=== PATIENT | male | born 1975 | race Caucasian/White ===

== ENCOUNTER → 2017-07-09 | Outpatient (CLI) | payer BC ==
[~2017-07-09] MED LIST: AMOX-429 PO; INSU100C14 SQ; LACT10SO46 PO; LEVIMIR SQ; LOSA25TA21 PO
== END | disposition home or self-care (01) ==
LOC: RAH 14:05
PROVIDERS: ATTEND Internal Medicine Gastroenterology
DX: N63.20 Unspecified lump in the left breast, unspecified quadrant (principal); N63.10 Unspecified lump in the right breast, unspecified quadrant; R92.2 Inconclusive mammogram
CPT/HCPCS: 76641; 77066

== ENCOUNTER 2017-07-25 18:19 | Inpatient (IN) | payer BC ==
[~2017-07-25] VITALS: Ht 175.3 cm; Wt 81.6 kg
[~2017-07-25 18:19] MED LIST changes: +AMIODARONE HCL 900MG/18ML IV ONE; +CALCIUM CHLORIDE 100 MG/ML 10 ML SYG IVP ONE; +DOPAMINE HCL 400 MG/D5%-WATER 250 ML IV ONE; +EPINEPHRINE 0.1 MG/ML 10 ML SYG IVP ONE; +LIDOCAINE 2G/250ML 250 ML IV ONE; +MAGNESIUM SULFATE 1 GM/2 ML VIAL IM ONE; +SODIUM BICARB 8.4% 50ML SYRINGE IVP ONE
[2017-07-25] MEDS ORDERED: EPINEPHRINE 1 MG/ML 30ML VIAL IJ ONE (18:41)
[2017-07-25 18:46] LABS: BASOPHILS % (AUTO) 0.6 % (0.0-5.0); EOSINOPHILS % (AUTO) 0.4 % (0.0-8.0); HEMATOCRIT 35.6 % (42-54); LYMPHOCYTES % (AUTO) 40.1 % (21.0-51.0); MEAN CORPUSCULAR HEMOGLOBIN 36.6 pg (27.0-33.0); MEAN CORPUSCULAR HGB CONC 31.7 g/dL (32.0-36.0); MEAN CORPUSCULAR VOLUME 115.5 fL (79-99); MONOCYTES % (AUTO) 6.8 % (3.0-13.0); NEUTROPHILS % (AUTO) 52.1 % (40.0-77.0); NUCLEATED RED BLOOD CELLS 0.5 % (0.0-0.19); PLATELET COUNT (AUTO) 105 K/uL (130-400); RED BLOOD CELL COUNT(AUTO) 3.09 MIL/uL (4.50-6.20); RED CELL DISTRIBUTION WIDTH 15.6 % (11.0-15.5); WHITE BLOOD COUNT (AUTO) 8.9 K/uL (4.8-10.8)
[2017-07-25] MEDS ORDERED: SODIUM BICARB 50MEQ 50ML VIAL ONE ×2 (18:46→22:06)
[2017-07-25 18:50] LABS: INR 1.63 (0.85-1.15); PARTIAL THROMBOPLASTIN TIME 46.2 SEC (26.3-35.5)
[2017-07-25 19:03] LABS: ALBUMIN 2.6 g/dL (3.5-5.0); BILIRUBIN,TOTAL 3.6 mg/dL (0.2-1.0); CREATINE KINASE MB 1.6 ng/mL (0.5-3.6); CREATININE 2.7 mg/dL (0.5-1.5); TOTAL PROTEIN, SERUM 6.8 g/dL (6.0-8.3)
[2017-07-25 19:05] LABS: POTASSIUM 7.7 mmol/L (3.5-5.1)
[2017-07-25] MEDS ORDERED: SODIUM CHLORIDE 0.9% IV ONE (19:19)
[2017-07-25] MEDS ORDERED: SODIUM CHLORIDE 0.9% 200 ML IV ONE (19:20)
[2017-07-25] MEDS ORDERED: NOREPINEPHRINE BITARTRATE 1 MG/1 ML ML IV ONE (19:20)
[2017-07-25] MEDS ORDERED: INSULIN HUMULIN R 100 UNIT/ML 3ML ONE ×2 (19:22→19:27)
[2017-07-25 19:23] LABS: ABG BASE EXCESS -22.4 mmol/L (-2.0-3.0); ABG HCO3 9.5 mmol/L (21.0-28.0); ABG OXYGEN SATURATION 98.1 % (95.0-99.0); ABG PCO2 46 mmHg (35-48)
[2017-07-25] MEDS ORDERED: SODIUM CHLORIDE 0.9% 250 ML IV ONE ×2 (19:31→19:41)
[2017-07-25] MEDS ORDERED: MEROPENEM 1 GM VIAL ONE (20:33)
[2017-07-25] MEDS ORDERED: VANCOMYCIN 1GM+NS 250ML 250 ML IV ONE (20:33)
[2017-07-25] MEDS ORDERED: SODIUM BICARB 8.4% 50ML SYRING 150 MEQ in DEXTROSE 5%-WATER 1,000 ML IVP SCH (21:15)
[2017-07-25 21:17] LABS: ABG BASE EXCESS -24.7 mmol/L (-2.0-3.0); ABG HCO3 6.4 mmol/L (21.0-28.0); ABG OXYGEN SATURATION 92.6 % (95.0-99.0); ABG PCO2 29 mmHg (35-48)
[2017-07-25 21:27] LABS: ALBUMIN 1.8 g/dL (3.5-5.0); BILIRUBIN,TOTAL 3.1 mg/dL (0.2-1.0); CREATININE 2.6 mg/dL (0.5-1.5); POTASSIUM 5.9 mmol/L (3.5-5.1); TOTAL PROTEIN, SERUM 5.4 g/dL (6.0-8.3)
[2017-07-25] MEDS ORDERED: ONDANSETRON HCL 4 MG/2 ML VIAL IV PRN (22:45)
[2017-07-25] MEDS ORDERED: MEROPENEM 500MG+NS 50ML 50 ML IV SCH (22:45)
[2017-07-25] MEDS: DEXTROSE 5 % AND 0.9 % NACL 1,000 ML IV SCH (22:45)
[2017-07-25] MEDS ORDERED: PHARMACY COMMUNICATION MISC SCH (22:45)
[2017-07-25] MEDS ORDERED: VANCOMYCIN 1GM+NS 250ML 250 ML IV SCH (22:45)
[2017-07-25 23:07] LABS: APPEARANCE,URINE Cloudy (CLEAR); BILIRUBIN,URINE Negative (NEGATIVE); COLOR,URINE Yellow (YELLOW); GLUCOSE, URINE (UA) >=1000 mg/dL (NEGATIVE); KETONES,URINE Trace mg/dL (NEGATIVE); LEUKOCYTE ESTERASE ,URINE Negative (NEGATIVE); NITRATE,URINE Negative (NEGATIVE); OCCULT BLOOD,URINE Negative (NEGATIVE); PROTEIN,URINE Negative (NEGATIVE); UROBILINOGEN,URINE 0.2 mg/dL (0.2-1.0)
[2017-07-25 23:15] LABS: AMPHET/METH SCREEN,URINE NEGATIVE (NEGATIVE); BARBITURATE SCREEN, URINE NEGATIVE (NEGATIVE); BENZODIAZEPINES SCREEN,URINE NEGATIVE (NEGATIVE); CANNABINOID SCREEN,URINE NEGATIVE (NEGATIVE); COCAINE SCREEN,URINE NEGATIVE (NEGATIVE); OPIATE SCREEN,URINE NEGATIVE (NEGATIVE); PHENCYCLIDINE SCREEN,URINE NEGATIVE (NEGATIVE)
[2017-07-25] MEDS ORDERED: VANCOMYCIN PROTOCOL PER PHARMACY IV SCH (23:30)
[2017-07-25 23:32] LABS: AMORPHOUS SEDIMENT,UR Many /LPF (None Seen); BACTERIA,URINE None Seen /HPF (None Seen); RBC,URINE None Seen /HPF (0-1); SQUAMOUS EPITHELIAL CELL,UR Rare /LPF (0-2); WBC,URINE None Seen /HPF (0-1)
[2017-07-26] VITALS (33 sets, daily range): BP systolic 39–137; BP diastolic 25–90
[2017-07-26] MEDS ORDERED: SODIUM CHLORIDE 0.9% 250 ML IV ONE (00:14)
[2017-07-26] MEDS ORDERED: EPINEPHRINE 1 MG/ML AMPULE ONE (00:16)
[2017-07-26] MEDS: SODIUM CHLORIDE 0.9% 1000ML 1,000 ML IV SCH ×3 (00:49→09:17)
[2017-07-26] MEDS ORDERED: EPINEPHRINE 1 MG/ML 30ML VIAL IJ ONE (01:38)
[2017-07-26] MEDS ORDERED: SODIUM CHLORIDE 0.9% 500ML 500 ML IV ONE (01:39)
[2017-07-26] MEDS ORDERED: SODIUM BICARB 50MEQ 50ML VIAL ONE ×3 (03:38→09:37)
[2017-07-26] MEDS ORDERED: DEXTROSE 5%-WATER 1,000 ML IV ONE (03:39)
[2017-07-26] MEDS ORDERED: INSULIN HUMULIN R 100 UNIT/ML 3ML ONE ×2 (04:00→04:01)
[2017-07-26 04:06] LABS: ABG HCO3 12.2 mmol/L (21.0-28.0); ABG OXYGEN SATURATION 86.6 % (95.0-99.0); ABG PCO2 30 mmHg (35-48)
[2017-07-26] MEDS: DEXTROSE 5 % AND 0.9 % NACL 1,000 ML IV SCH ×2 (05:25→12:05)
[2017-07-26] MEDS ORDERED: SODIUM BICARB 8.4% 50ML SYRINGE IVP SCH (06:30)
[2017-07-26 07:18] LABS: HEMATOCRIT 30.7 % (42-54); MEAN CORPUSCULAR HGB CONC 35.7 g/dL (32.0-36.0); MEAN CORPUSCULAR VOLUME 106.5 fL (79-99); NUCLEATED RED BLOOD CELLS 0.1 % (0.0-0.19); PLATELET COUNT (AUTO) 98 K/uL (130-400); RED BLOOD CELL COUNT(AUTO) 2.88 MIL/uL (4.50-6.20); RED CELL DISTRIBUTION WIDTH 14.6 % (11.0-15.5); WHITE BLOOD COUNT (AUTO) 10.4 K/uL (4.8-10.8)
[2017-07-26 07:41] LABS: HEMOGLOBIN A1C 9.9 % (4.0-6.0)
[2017-07-26] MEDS ORDERED: HEPARIN SODIUM 5000UNIT/ML 1ML VIAL SQ SCH (07:45)
[2017-07-26 07:51] LABS: ALBUMIN 1.8 g/dL (3.5-5.0); BILIRUBIN,TOTAL 5.8 mg/dL (0.2-1.0); CREATININE 2.9 mg/dL (0.5-1.5); THYROID STIMULATING HORMONE 5.79 uIU/mL (0.36-3.74)
[2017-07-26] MEDS ORDERED: INSULIN REGULAR, HUMAN 3ML 100 UNIT in SODIUM CHLORIDE 0.9% 99 ML IV PRN ×2 (08:00)
[2017-07-26 08:20] LABS: POTASSIUM 2.4 mmol/L (3.5-5.1)
[2017-07-26] MEDS: SODIUM CHLORIDE 0.9% IV SCH ×2 (08:39→13:17)
[2017-07-26] MEDS: EPINEPHRINE IV SCH ×2 (08:39→13:17)
[2017-07-26] MEDS ORDERED: PANTOPRAZOLE 40 MG/VIAL IVP SCH (09:00)
[2017-07-26] MEDS ORDERED: MEROPENEM 500 MG VIAL IVP SCH (09:00)
[2017-07-26] MEDS ORDERED: FAMOTIDINE/PF 20 MG/2 ML VIAL IV SCH (09:00)
[2017-07-26] MEDS ORDERED: POTASSIUM CHLORIDE 20MEQ/100ML 100 ML IV PRN (10:15)
[2017-07-26] MEDS ORDERED: SYRING IV SCH (10:15)
[2017-07-26] MEDS ORDERED: 1/2 NORMAL SALINE IV SCH (10:15)
[2017-07-26] MEDS ORDERED: SODIUM BICARB 8.4% IV SCH (10:15)
[2017-07-26] MEDS ORDERED: POTASSIUM CHLORIDE 20MEQ/100ML 200 ML IV ONE (10:28)
[2017-07-26] MEDS ORDERED: COMPOUND IV REFRIGERATED 1 EACH IVSOLN MISC PRN (11:00)
[2017-07-26] MEDS: POTASSIUM CHLORIDE 20 MEQ/100 ML BAG IV SCH ×3 (11:13→13:40)
[2017-07-26] MEDS: NOREPINEPHRINE 4MG/NS 250ML 250 ML IV SCH ×2 (11:16→15:03)
[2017-07-26 12:07] LABS: CREATININE 2.9 mg/dL (0.5-1.5)
[2017-07-26 12:10] LABS: POTASSIUM 2.3 mmol/L (3.5-5.1)
[2017-07-26 15:21] LABS: POTASSIUM 2.5 mmol/L (3.5-5.1)
[2017-07-26] MEDS ORDERED: VANCOMYCIN 1.25 GM in SODIUM CHLORIDE 0.9% 250 ML IV SCH (20:00)
[2017-07-26] MEDS ORDERED: SODIUM BICARB 8.4% 50ML SYRING 150 MEQ in SODIUM CHLORIDE 0.9% 1000ML 1,000 ML IV SCH (22:43)
== END 2017-07-26 17:19 | disposition expired | DRG 871 ==
LOC: EDH 18:19 → EDHIP 21:36 → 2BH 23:47
PROVIDERS: ADMIT Family Medicine; ATTEND Family Medicine
PROC: 5A1935Z Respiratory Ventilation, Less than 24 Consecutive Hours (ICD-10-PCS; principal; 2017-07-25)
PROC: 06HD33Z Insertion of Infusion Device into Left Common Iliac Vein, Percutaneous Approach (ICD-10-PCS; 2017-07-25)
PROC: 0BH17EZ Insertion of Endotracheal Airway into Trachea, Via Natural or Artificial Opening (ICD-10-PCS; 2017-07-25)
DX: A41.9 Sepsis, unspecified organism (principal); G93.6 Cerebral edema; J96.90 Respiratory failure, unspecified, unspecified whether with hypoxia or hypercapnia; I46.9 Cardiac arrest, cause unspecified; G93.1 Anoxic brain damage, not elsewhere classified; I47.2 Ventricular tachycardia; E10.10 Type 1 diabetes mellitus with ketoacidosis without coma; N17.9 Acute kidney failure, unspecified; N18.3 Chronic kidney disease, stage 3 (moderate); I12.9 Hypertensive chronic kidney disease with stage 1 through stage 4 chronic kidney disease, or unspecified chronic kidney disease; D69.59 Other secondary thrombocytopenia; D73.1 Hypersplenism; E10.22 Type 1 diabetes mellitus with diabetic chronic kidney disease; E87.5 Hyperkalemia; F10.10 Alcohol abuse, uncomplicated; K70.9 Alcoholic liver disease, unspecified; K74.60 Unspecified cirrhosis of liver; Z66 Do not resuscitate; Z96.41 Presence of insulin pump (external) (internal); R74.0 Nonspecific elevation of levels of transaminase and lactic acid dehydrogenase [LDH]; Z28.21 Immunization not carried out because of patient refusal; Z72.0 Tobacco use; Z79.4 Long term (current) use of insulin
CPT/HCPCS: 36415; 36600; 70450; 71045; 74018; 80048; 80053; 80305; 81001; 82009; 82330; 82435; 82550; 82553; 82803; 82947; 82948; 83036; 83605; 83735; 84132; 84295; 84443; 84484; 85018; 85025; 85027; 85610; 85730; 87040; 87088; 92950; 93005; 94002; 94003; 99291; A4218; J0171; J0282; J1265; J1644; J1815; J2001; J2185; J3370; J3475; J3480; J3490; J7030; J7040; J7070